=== PATIENT | female | born 1985 ===

== ENCOUNTER 2018-10-05 18:07 | Inpatient (IN) | payer BC ==
[2018-10-05 18:43] VITALS: BMI 28.1
[2018-10-05] MEDS: Lactated Ringer's 1,000 ML IV SCH (18:53)
[2018-10-05 19:21] LABS: BASO % 0.2 % (0.0-2.0); EOS # 0.1 K/uL (0.0-0.7); HEMOGLOBIN 13.1 g/dL (11.0-16.0); LYMPH # 1.3 K/uL (1.0-4.3); MEAN CORPUSCULAR HEMOGLOBIN 31.5 pg (27.0-31.0); MEAN CORPUSCULAR HGB CONC 33.9 g/dL (33.0-37.0); MEAN PLATELET VOLUME 8.9 fL (7.2-11.7); MONO # 0.6 K/uL (0.0-0.8); MONO % 6.1 % (0.0-10.0); NEUT # 8.2 K/uL (1.8-7.0); NEUT % 79.7 % (50.0-75.0); NRBC % 0.1 % (0.0-2.0); RBC 4.14 Mil/uL (3.80-5.20); WHITE BLOOD COUNT 10.3 K/uL (4.8-10.8)
[2018-10-05 19:58] LABS: ALB/GLOB RATIO 1.2 (1.0-2.1); ALBUMIN 4.1 g/dL (3.5-5.0); ALT/SGPT 35 U/L (9-52); AST/SGOT 29 U/L (14-36); BLOOD UREA NITROGEN 7 mg/dL (7-17); CALCIUM 10.5 mg/dl (8.6-10.4); GFR NON-AFRICAN AMERICAN > 60; SQUAMOUS EPITHIAL 6 /hpf (0-5); URINE BACTERIA RARE (<OCC); URINE BILIRUBIN NEGATIVE (NEGATIVE); URINE BLOOD NEGATIVE (NEGATIVE); URINE CLARITY Hazy (Clear); URINE COLOR Yellow (YELLOW); URINE GLUCOSE (UA) NORMAL (Normal); URINE LEUKOCYTE ESTERASE NEG Leu/uL (Negative); URINE PROTEIN NEGATIVE (NEGATIVE); URINE UROBILINOGEN NORMAL mg/dL (0.2-1.0)
[2018-10-05] MEDS ORDERED: Fentanyl/Bupivacaine HCl 250 ML EPI ONE (20:13)
[2018-10-05 20:29] LABS: HEPATITIS B SURFACE AG Negative (NEGATIVE)
--- NOTE | 2018-10-05 20:39 | OBHP ---
Datetime: 10/05/2018 18:27 IP Adm Impression: Term, intrauterine IP Admit Plan: Admit to unit; Initiate labor augmentation protocol Admit Comment, IP Provider: CC: Contractions Patient is a 33 year old at 39.3 weeks of gestation; LMP (01/02/18) and RENETTA by first neyda davenport (10/09/18), who presents to the [facility] with complaints of contractions that started at 10:15am, whic h she describes as irregular. However, patient reports that around 12:30pm, she noted contractions to be approximately 4 minutes apart and around 4:30pm, contractions became 1 minute apart. In addition, patient was seen by her primary Axminster Weaver, who did a SVE with results of 1cm dilation. Patient's last s exual activity has been within 24-48 hours. Patient admits to contractions and movement but den ies any symptoms of LOF, vaginal bleeding. Care: Dr. 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 Denies any hx of tobacco, ETOH or illicit drug use VS: BP's somewhat elevated (Refer to vital chart above) Labs: Pending Care Records: Pending A/P: Patient is a 33 year old at 39.3 weeks of gestation; LMP (01/02/18) and RENETTA by first dolores pichardo (10/09/18), who presents to the [facility] with complaints of contractions that started at 10:15am. NST: Reactive 1. Admit to unit, per Dr. Ng 2. Admission orders: See order 3. CEFM with toco 4. LR @ 125mls/hr 5. Expectant management: Will recheck cervix when contractions increase in frequency or evidence o f active labot 6. Epidural Request: Anesthesia consult placed All plans and management discussed with Dr. Wetzel Pt seen and examined with Dr. Goode and per Dr. Ng's request. All of her findings and POC wer e fully discussed and agreed on. Extremities - PN: Normal Abdomen - PN: Normal Breast - PN: Not Done Lungs - PN: Normal Heart - PN: Normal Thyroid - PN: Not Done Neurologic - PN: Not Done HEENT - PN: Normal General - PN: Normal Presentation-Admit: Vertex FHR - Baseline A Provider: 150 Membranes, Provider: Intact Comments, ACOG Physical Exam: Gen: NAD HEENT: Normacephalic, atraumatic Cardio: RRR, +S1, +S2, No murmur Pulm: CTA bilaterally Abdomen: Gravid, soft with intermittent tightening as she is santosh, fundal height (39cm) Ext: No edema, no cyanosis or clubbing SVE: 1cm/70%/-3 Gestation - Est Wks by US: 39.3 EGA AdmitDate IP: 39.3 Vital Signs Provider: Reviewed IP Indication for Induction: Not Applicable IP Chief Complaint: Uterine contractions NICHD Variability Prov Fetus A: Moderate 6-25bpm NICHD Accel Fetus A IP Provider: 10X10 (Annotations: Data stored by CPN on behalf of user) FHR Category Provider Fetus A: Category I NICHD Decel Fetus A IP Provider: None Dilatation, Provider: 1 Effacement, Provider: 70 Station, Provider: -3
--- NOTE | 2018-10-05 21:06 | OBADHP ---
Datetime: 10/05/2018 18:27 Admit Comment, IP Provider: CC: Contractions Patient is a 33 year old at 39.3 weeks of gestation; LMP (01/02/18) and RENETTA by first neyda davenport (10/09/18), who presents to the [facility] with complaints of contractions that started at 10:15am, whic h she describes as irregular. However, patient reports that around 12:30pm, she noted contractions to be approximately 4 minutes apart and around 4:30pm, contractions became 1 minute apart. In addition, patient was seen by her primary Restoration Ecologist, who did a SVE with results of 1cm dilation. Patient's last s exual activity has been within 24-48 hours. Patient admits to contractions and movement but den ies any symptoms of LOF, vaginal bleeding. Care: Dr. 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 Denies any hx of tobacco, ETOH or illicit drug use VS: BP's somewhat elevated (Refer to vital chart above) Labs: Pending Care Records: Pending A/P: Patient is a 33 year old at 39.3 weeks of gestation; LMP (01/02/18) and RENETTA by first dolores pichardo (10/09/18), who presents to the [facility] with complaints of contractions that started at 10:15am. NST: Reactive 1. Admit to unit, per Dr. Ng 2. Admission orders: See order 3. CEFM with toco 4. LR @ 125mls/hr 5. Expectant management: Will recheck cervix when contractions increase in frequency or evidence o f active labot 6. Epidural Request: Anesthesia consult placed All plans and management discussed with Dr. Wetzel Pt seen and examined with Dr. Goode and per Dr. Ng's request. All of her findings and POC wer e fully discussed and agreed on. Extremities - PN: Normal Abdomen - PN: Normal Breast - PN: Not Done Lungs - PN: Normal Heart - PN: Normal Thyroid - PN: Not Done Neurologic - PN: Not Done HEENT - PN: Normal General - PN: Normal Presentation-Admit: Vertex FHR - Baseline A Provider: 150 Membranes, Provider: Intact Comments, ACOG Physical Exam: Gen: NAD HEENT: Normacephalic, atraumatic Cardio: RRR, +S1, +S2, No murmur Pulm: CTA bilaterally Abdomen: Gravid, soft with intermittent tightening as she is santosh, fundal height (39cm) Ext: No edema, no cyanosis or clubbing SVE: 1cm/70%/-3 Gestation - Est Wks by US: 39.3 Vital Signs Provider: Reviewed IP Chief Complaint: Uterine contractions NICHD Variability Prov Fetus A: Moderate 6-25bpm NICHD Accel Fetus A IP Provider: 10X10 (Annotations: Data stored by CPN on behalf of user) FHR Category Provider Fetus A: Category I NICHD Decel Fetus A IP Provider: None Dilatation, Provider: 1 Effacement, Provider: 70 Station, Provider: -3 EGA AdmitDate IP: 39.3 IP Adm Impression: Term, intrauterine IP Admit Plan: Admit to unit; Initiate labor augmentation protocol
[2018-10-05 21:23] LABS: URIC ACID 4.2 mg/dL (2.2-7.5)
[2018-10-05 21:24] LABS: RAPID PLASMA REAGIN NONREACTIVE (NONREACTIVE)
[2018-10-05] MEDS ORDERED: Oxytocin 30 UNIT in NS 500 ml 30 UNITS/500 ML BAG IV SCH (21:45)
[2018-10-05 21:53] LABS: SQUAMOUS EPITHIAL < 1 /hpf (0-5); URINE BILIRUBIN NEGATIVE (NEGATIVE); URINE BLOOD NEGATIVE (NEGATIVE); URINE CLARITY Clear (Clear); URINE COLOR Yellow (YELLOW); URINE GLUCOSE (UA) NORMAL (Normal); URINE LEUKOCYTE ESTERASE NEG Leu/uL (Negative); URINE PROTEIN NEGATIVE (NEGATIVE); URINE UROBILINOGEN NORMAL mg/dL (0.2-1.0)
[2018-10-05 21:58] LABS: CREATININE, RANDOM URINE 34.4 mg/dL
[2018-10-05] MEDS ORDERED: Oxytocin 30 UNIT in NS 500 ml 30 UNITS/500 ML BAG IV ONE (22:06)
[2018-10-06] MEDS: Lactated Ringer's 1,000 ML IV SCH (03:00)
--- NOTE | 2018-10-06 07:31 | OBPN ---
Datetime: 10/06/2018 07:02 IP Progress Impression: Normal progression of labor; Rupture of membranes IP Informed Consent Obtain: Vaginal Delivery IP Procedures: Artificial ROM; Sterile Vag Exam IP Progress Plan: Continue present management Membranes, Provider: Ruptured Amniotic Fluid Color, Provider: Clear Contraction Comments Provider: Q 2-3 FHR - Baseline A Provider: 140 Gestation - Est Wks by US: 39.4 Presentation-Admit: Vertex IP Progress Note Comment: Pt seen and examined per Dr. gN's request. UC's Q 2-4 minutes with Pitocin at 8 mU/min AROM, per Dr. Ng's request with return of clear fluid Completely dilated and feeling contractions Anesthesia called for assistance with pain tracing reassuring Anticipate vaginal delivery Dr. Ng in route. Vital Signs Provider: Reviewed; Within Normal Limits NICHD Accel Fetus A IP Provider: 10X10 FHR Category Provider Fetus A: Category I NICHD Variability Prov Fetus A: Moderate 6-25bpm Dilatation, Provider: 10 Effacement, Provider: 100 Station, Provider: 0 NICHD Decel Fetus A IP Provider: None
[2018-10-06] MEDS ORDERED: Benzocaine/Menthol 20%-0.5% Topical Spray (60 ml) TOP PRN (09:06)
[2018-10-06] MEDS ORDERED: Oxycodone/Acetaminophen 5/325 mg Tab PO PRN (09:06)
--- NOTE | 2018-10-06 09:07 | OBPN ---
Datetime: 10/06/2018 09:00 IP Progress Impression: Normal progression of labor IP Procedures: Sterile Vag Exam Contraction Comments Provider: q1-4 FHR - Baseline A Provider: 130 IP Progress Note Comment: pt was bed side at raquel ve 10/100/+1 plan cont pitocin anticipae NICHD Accel Fetus A IP Provider: 15X15 NICHD Variability Prov Fetus A: Moderate 6-25bpm Dilatation, Provider: 10 Effacement, Provider: 100 Station, Provider: -3
[2018-10-06] MEDS ORDERED: Oxytocin 10 Units/ml Inj ONE (09:32)
[2018-10-06] MEDS: Oxycodone/Acetaminophen 5/325 mg Tab PO PRN ×2 (10:00→19:42)
[2018-10-06] MEDS ORDERED: Oxytocin 10 Units/ml Inj IV ONE (10:30)
[2018-10-07] MEDS: Oxycodone/Acetaminophen 5/325 mg Tab PO PRN (04:15)
[2018-10-07 08:46] LABS: BASO % 0.1 % (0.0-2.0); EOS # 0.1 K/uL (0.0-0.7); EOS % 0.4 % (0.0-4.0); LYMPH # 1.3 K/uL (1.0-4.3); LYMPH % 10.1 % (20.0-40.0); MEAN CELL VOLUME 94.2 fL (81.0-99.0); MEAN CORPUSCULAR HEMOGLOBIN 31.6 pg (27.0-31.0); MEAN CORPUSCULAR HGB CONC 33.6 g/dL (33.0-37.0); MONO # 0.6 K/uL (0.0-0.8); MONO % 4.4 % (0.0-10.0); NEUT # 11.2 K/uL (1.8-7.0); RBC 3.35 Mil/uL (3.80-5.20); RED CELL DISTRIBUTION WIDTH 12.9 % (11.5-14.5); WHITE BLOOD COUNT 13.2 K/uL (4.8-10.8)
[2018-10-07 08:59] LABS: HEMOGLOBIN 10.6 g/dL (11.0-16.0)
--- NOTE | 2018-10-07 15:52 | OBPPN ---
Datetime: 10/07/2018 07:20 PP Pain Prov: Within normal limits PP Nausea Prov: Denies PP Flatus Prov: Yes PP BM Prov: Yes PP Breasts Prov: Not Done PP Heart Prov: Normal PP Lungs Prov: Normal PP Abdomen/Uterus Prov: Normal PP Lochia Prov: Normal PP Vulva/Perineum Prov: Not Done PP CVA Tenderness Prov: Not Done PP Extremities Prov: Normal PP C/S Incision Prov: Not Applicable PP Impression Prov: Normal progression PP Plan Prov: Continue present management PP Progress Note Prov: Patient was seen and examined at bedside. No acute overnight events as per nu ing staff and patient. Pain is moderate (7/10) and controlled (reduced to 4/10) with motrin 600mg q6 and percocet 5/325mg q4. Lochia is moderate, patient admits to changing her pads 7 times yesterda y and twice today. Patient is ambulating out of bed to bathroom and tolerating a regular diet. She r eports regular bowel movements without straining, last BM was yesterday afternoon. She is breastfeed ing well with good latch. Reports lower extremity swelling and decreased sensation. Denies fever, c hills, chest pain, palpitations, SOB, dysuria, hematuria, nausea/vomiting, dizziness or claudication. VS: T: 97.4, HR: 91, BP: 118/78, O2: 100% RA General: AAO X3, NAD Lungs: CTA b/l Heart: RRR, normal S1, S2 Abdomen: Soft, non-distended, mildly tender to palpation in lower quadrants. Fundus is firm and no n-tender. Fundal height at the level of umbilius. Extremities: No edema or tenderness : No erythema or hematoma noted on episiotomy scar Labs: 10.3>13.0/38.5<178, 13.2>10.6/31.6<152 B+, Rubella immune Assessment: Patient is a 33 year old s/p s/p right mediolateral episiotomy, PPD #1. Plan: - Stable, Afebrile - Encourage ambulation, hydration, and - Pain control with Motrin and Percocet - Dermoplast for perineal pain - Plan for discharge on 10/08 Patient seen and case discussed with Dr. Berenice ni. Portillo Montoya, PGY-1 Vital Signs Provider PP: Reviewed; Within Normal Limits
--- NOTE | 2018-10-08 07:10 | OBPPN ---
Datetime: 10/08/2018 07:09 PP Pain Prov: Within normal limits PP Nausea Prov: Denies PP Abdomen/Uterus Prov: Normal PP CVA Tenderness Prov: Normal PP Impression Prov: Normal progression PP Plan Prov: Discharge PP Progress Note Prov: pt was seen atbed siode, pain under control,no n/v, tolerating deit, voidimng , flatus + ppd#2 dc home pain meds cont pnv f/u in 3we
[2018-10-08] MEDS ORDERED: Tdap Vaccine 0.5 ml Vial (10-64 yrs) IM ONE (07:12)
[2018-10-08] MEDS ORDERED: Influenza Vaccine 60 mcg/0.5 mL SYR (4YR UP) IM ONE (13:14)
[2018-10-08 19:03] VITALS: BP 117/78; PULSE 97; RESP 18; TEMP 97.1; O2SAT 98
== END 2018-10-08 14:20 | disposition home or self-care (01) | DRG 807 ==
LOC: C.EROB 18:07 → C.4D 18:44 → C.4M 10-06 11:30
PROVIDERS: ADMIT Obstetrics & Gynecology; ATTEND Obstetrics & Gynecology
PROC: 10E0XZZ Delivery of Products of Conception, External Approach (ICD-10-PCS; principal; 2018-10-06)
PROC: 0KQM0ZZ Repair Perineum Muscle, Open Approach (ICD-10-PCS; 2018-10-06)
DX: O70.1 Second degree perineal laceration during delivery (principal); Z37.0 Single live birth; Z3A.39 39 weeks gestation of pregnancy